=== PATIENT | male | born 1945 | race Caucasian/White ===

== ENCOUNTER 2017-07-19 13:13 | Emergency (ER) | payer MEDICARE, OTHER ==
[~2017-07-19] VITALS: Ht 157.5 cm; Wt 76.7 kg
[~2017-07-19 13:13] MED LIST: NKM; NORCO 5-325 TA1 EACH ORAL
[2017-07-19] MEDS ORDERED: ASPIR 8181 MG ORAL (13:34)
[2017-07-19 13:45] VITALS: BP 171/83
[2017-07-19] MEDS ORDERED: Sodium Chloride 500ML 500 ML IV ONE (14:03)
[2017-07-19 14:51] LABS: BASOPHILS % (AUTO) 2.7 % (0.0-2.0); LYMPHOCYTES % (AUTO) 23.5 % (20.0-45.0); MEAN CORPUSCULAR HEMOGLOBIN 30.2 PG (27.0-31.0); MEAN CORPUSCULAR HGB CONC 31.1 G/DL (32.0-36.0); MEAN CORPUSCULAR VOLUME 97 FL (80-99); MEAN PLATELET VOLUME 7.1 FL (6.5-10.1); MONOCYTES % (AUTO) 8.4 % (1.0-10.0); NEUTROPHILS % (AUTO) 62.4 % (45.0-75.0); PLATELET COUNT 217 K/UL (150-450); WHITE BLOOD COUNT 10.5 K/UL (4.8-10.8)
[2017-07-19 15:00] VITALS: BP 144/83
[2017-07-19 15:15] LABS: ANION GAP 7 mmol/L (5-15); CALCIUM 9.6 MG/DL (8.5-10.1); CARBON DIOXIDE 27 MMOL/L (21-32); CHLORIDE 108 MMOL/L (98-107); CREATININE 0.9 MG/DL (0.55-1.30); POTASSIUM 4.2 MMOL/L (3.5-5.1); SODIUM 142 MMOL/L (136-145)
[2017-07-19 15:21] LABS: ALANINE AMINOTRANSFERASE 22 U/L (12-78); ALBUMIN/GLOBULIN RATIO 1.1 (1.0-2.7); ASPARTATE AMINO TRANSFERASE 23 U/L (15-37); LIPASE 115 U/L (73-393); TOTAL PROTEIN 7.3 G/DL (6.4-8.2)
[2017-07-19 16:30] VITALS: BP 158/79
--- NOTE | 2017-07-19 16:36 | Emergency Room Report ---
History of Present Illness General Chief Complaint: Hypertension Source: Patient Present Illness HPI 72-year-old male presents ED complaining of abdominal pain. Started 2 days ago. 11/14, sharp, right lower quadrant. Nonradiating. Patient was seen by PMD today. Was referred to ED for evaluation. Also stating that his blood pressure is high. BP is 184/83. States he is compliant with his medications. Denies any dizziness. Denies any chest pain or shortness of breath. Denies nausea or vomiting. No other aggravating relieving factors. Denies any other associated symptoms Allergies: Coded Allergies: No Known Allergies (Unverified , 07/17/13) Patient History Past Medical History: HTN Past Surgical History: none Pertinent Family History: none Social History: Denies: smoking, alcohol use, drug use Immunizations: UTD Reviewed Nursing Documentation: PMH: Agreed, PSxH: Agreed Nursing Documentation-PMH Past Medical History: No Stated History Review of Systems All Other Systems: negative except mentioned in HPI Physical Exam Vital Signs Date Time Temp Pulse Resp B/P (MAP) Pulse Ox O2 Delivery O2 Flow Rate FiO2 07/19/17 13:30 98.1 79 18 184/83 96 Room Air 07/19/17 13:45 97 Sp02 EP Interpretation: reviewed, normal General Appearance: no apparent distress, alert, GCS 15, non-toxic Head: normocephalic, atraumatic Eyes: bilateral eye normal inspection, bilateral eye PERRL ENT: hearing grossly normal, normal pharynx, no angioedema, normal voice Neck: full range of motion, supple/symm/no masses Respiratory: chest non-tender, lungs clear, normal breath sounds, speaking full sentences Cardiovascular #1: regular rate, rhythm, no edema Cardiovascular #2: 2+ carotid (R), 2+ carotid (L), 2+ radial (R), 2+ radial (L) , 2+ dorsalis pedis (R), 2+ dorsalis pedis (L) Gastrointestinal: normal bowel sounds, soft, non-distended, no guarding, no rebound, tenderness - RLQ Rectal: deferred Genitourinary: normal inspection, no CVA tenderness Musculoskeletal: back normal, gait/station normal, normal range of motion, non- tender Neurologic: alert, oriented x3, responsive, motor strength/tone normal, sensory intact, speech normal Psychiatric: judgement/insight normal, memory normal, mood/affect normal, no suicidal/homicidal ideation Reflexes: 3+ bicep (R), 3+ bicep (L), 3+ tricep (R), 3+ tricep (L), 3+ knee (R) , 3+ knee (L) Skin: normal color, no rash, warm/dry, well hydrated Lymphatic: no adenopathy Medical Decision Making Diagnostic Impression: Primary Impression: Hypertension Qualified Codes: I10 - Essential (primary) hypertension Additional Impression: Kidney stone ER Course Hospital Course 72-year-old M presents to ED with RLQ pain Differential diagnosis includes-appendicitis, cholecystitis, kidney stone, pyelonephritis Clinical course Patient placed on stretcher. After initial history and physical I ordered labs , IV fluids, pain medications and CT scan Labs - no leukocytosis, electrolytes ok, LFTs normal, UA - hematuria, no UTI CT scan shows 5mm stone in proximal R ureter with hydronephrisis Given no evidence of bacteria in urine, normal kidney function I believe patient be safely discharged to home. Discussed findings with patient and family. They agreed to plan. Recommend followup with urology I feel this is a highly complex case requiring extensive working including EKG/ Rhythm strip, Xray/CT/US, Blood/urine lab work, repeat exams while in ED, and administration of strong opiates/narcotics for pain control, admission to hospital or close patient follow up. Diagnosis - hypertension, kidney stone Stable and discharged to home with Rx Tylenol, Flomax. Followup with PMD. Return to ED if symptoms recur or worsen Labs Test 07/19/17 14:38 White Blood Count 10.5 K/UL (4.8-10.8) Red Blood Count 5.00 M/UL (4.70-6.10) Hemoglobin 15.1 G/DL (14.2-18.0) Hematocrit 48.6 % (42.0-52.0) Mean Corpuscular Volume 97 FL (80-99) Mean Corpuscular Hemoglobin 30.2 PG (27.0-31.0) Mean Corpuscular Hemoglobin Concent 31.1 G/DL (32.0-36.0) Red Cell Distribution Width 13.0 % (11.6-14.8) Platelet Count 217 K/UL (150-450) Mean Platelet Volume 7.1 FL (6.5-10.1) Neutrophils (%) (Auto) 62.4 % (45.0-75.0) Lymphocytes (%) (Auto) 23.5 % (20.0-45.0) Monocytes (%) (Auto) 8.4 % (1.0-10.0) Eosinophils (%) (Auto) 3.0 % (0.0-3.0) Basophils (%) (Auto) 2.7 % (0.0-2.0) Sodium Level 142 MMOL/L (136-145) Potassium Level 4.2 MMOL/L (3.5-5.1) Chloride Level 108 MMOL/L (98-107) Carbon Dioxide Level 27 MMOL/L (21-32) Anion Gap 7 mmol/L (5-15) Blood Urea Nitrogen 17 mg/dL (7-18) Creatinine 0.9 MG/DL (0.55-1.30) Estimat Glomerular Filtration Rate mL/min (>60) Glucose Level 91 MG/DL (74-106) Calcium Level 9.6 MG/DL (8.5-10.1) Total Bilirubin 0.8 MG/DL (0.2-1.0) Aspartate Amino Transf (AST/SGOT) 23 U/L (15-37) Alanine Aminotransferase (ALT/SGPT) 22 U/L (12-78) Alkaline Phosphatase 77 U/L (46-116) Total Protein 7.3 G/DL (6.4-8.2) Albumin 3.8 G/DL (3.4-5.0) Globulin 3.5 g/dL Albumin/Globulin Ratio 1.1 (1.0-2.7) Lipase 115 U/L (73-393) CT/MRI/US Diagnostic Results CT/MRI/US Diagnostic Results : Imaging Test Ordered: CT A/P Impression 5mm stone in proximal R ureter. mild hydroneprhosis Last Vital Signs Date Time Temp Pulse Resp B/P (MAP) Pulse Ox O2 Delivery O2 Flow Rate FiO2 07/19/17 13:45 98.6 73 15 171/83 97 Room Air 07/19/17 13:45 97 Status: improved Disposition: HOME, SELF-CARE Condition: Stable Scripts Tamsulosin Hcl (TAMSULOSIN HCL*) 0.4 Mg Cap.er.24h 0.4 MG ORAL BEDTIME, #10 CAP Prov: [place],BRIAN M.D. 07/19/17 Acetaminophen With Codeine (T#3) (TYLENOL #3 TAB*) Y Tab 1 TAB ORAL Q8H Y for For Pain, #20 TAB Prov: BRIAN ESQUIVEL M.D. 07/19/17 Referrals: NON PHYSICIAN (PCP) BRIAN ESQUIVEL M.D. Jul 19, 2017 16:35
[2017-07-19 17:17] LABS: APPEARANCE,URINE CLEAR; KETONES,URINE NEGATIVE (NEGATIVE); LEUKOCYTE ESTERASE ,URINE 3+ (NEGATIVE); NITRITE,URINE NEGATIVE (NEGATIVE); PH,URINE 7 (4.5-8.0); PROTEIN,URINE NEGATIVE (NEGATIVE); UROBILINOGEN,URINE NORMAL MG/DL (0.0-1.0)
[2017-07-19 17:24] LABS: BACTERIA,URINE FEW /HPF
[2017-07-19] MEDS ORDERED: ACETAMINOPHEN-1 EAC1 ORAL (17:42)
[2017-07-19] MEDS ORDERED: TAMSULOSIN HCL0.4 MG ORAL (17:42)
[2017-07-19 17:56] VITALS: BP 168/91
[2017-07-19 17:57] VITALS: BP 168/91
--- NOTE | 2017-07-20 05:02 | Diagnostic Imaging Report ---
Clinical Indication: Abdominal pain Technique: No oral contrast utilized, per emergency room physician request IV administration nonionic contrast. Venous phase spiral acquisition obtained through the abdomen and pelvis. Multiplanar reconstructions were generated. Total dose length product 842 mGycm. CTDIvol(s) 17 mGy. Dose reduction achieved using automated exposure control Comparison: None Findings: There is a 5 x 6 mm calculus in the proximal right ureter, approximately 2 cm distal to the ureteropelvic junction. There is only mild resultant hydronephrosis, and renal opacification appears normal. There is only minimal perinephric fat stranding which is not significantly different then the contralateral side. No intrarenal calculi demonstrated. The left kidney demonstrates a 7 mm exophytic enhancing mass coming off of the lower pole. No focal right renal abnormality. The bladder is unremarkable. The prostate is mildly enlarged. There is a small fat-containing indirect left inguinal hernia. There is colonic diverticulosis. No evidence of diverticulitis. The appendix is not definitely identified, but there are no findings to suggest acute appendicitis. There is a small sliding-type hiatal hernia. The remainder of the stomach is unremarkable. The duodenum is unremarkable. No small bowel distention. No free or loculated intraperitoneal air or fluid is evident. The gallbladder contents are minimally heterogeneous, small stones not completely excludable. A 0.7 cm hypodense lesion in the left lobe of the liver is indeterminate (series 5, image 22). The bile ducts are unremarkable. The spleen and adrenals are unremarkable. The heart is enlarged. Atelectatic changes and/or scarring are seen at both lung bases. The bones demonstrate degenerative spondylosis changes Impression: Positive for 5 x 6 mm proximal right ureteral calculus. This results in only mild hydronephrosis and delay in renal opacification 7 mm exophytic nodule coming off of the lower pole of the left kidney An indeterminate 7 mm left renal lesion. Follow-up CT or MRI beginning in 3-6 months is recommended, depending on co-morbidities or limited life expectancy. A 0.7 cm hypodense left lobe lesion is indeterminate for neoplasm. Follow-up with MRI or CT in 6 months is recommended, although a shorter interval follow-up may sometimes be appropriate, such as with a cirrhotic patient who is a liver transplant candidate. Colonic diverticulosis. No evidence of diverticulitis Cannot completely exclude small gallstone Cardiomegaly Mild prostatomegaly Incidental findings as noted, including degenerative spondylosis, small sliding-type hiatal hernia The CT scanner at [facility] is accredited by the [employer] and the scans are performed using protocols designed to limit radiation exposure to as low as reasonably achievable to attain images of sufficient resolution adequate for diagnostic evaluation. Recommendations for renal mass management, based on Caroline et al., J Am Ursula Radiol 7:754-73 (2010). Recommendations for incidental liver lesion management based on Barrettland et al., J Am Ursula Radiol 7:754-73 (2010).
== END 2017-07-19 17:55 | disposition home or self-care (01) ==
LOC: EMR 13:45
DX: I10 Essential (primary) hypertension (principal); N13.2 Hydronephrosis with renal and ureteral calculous obstruction; K57.30 Diverticulosis of large intestine without perforation or abscess without bleeding
CPT/HCPCS: 36415; 74177; 80053; 81003; 83690; 85025; 96360; 99284; Q9967

== ENCOUNTER 2017-08-23 05:30 | Day surgery (SDC) | payer MEDICARE ==
[2017-08-23] VITALS (9 sets, daily range): BP systolic 138–158; BP diastolic 72–85
[~2017-08-23] VITALS: Ht 160 cm; Wt 77.1 kg
[~2017-08-23 05:30] MED LIST changes: +ACETAMINOPHEN-1 EAC1 ORAL; +ASPIR 8181 MG ORAL; +TAMSULOSIN HCL0.4 MG ORAL
[2017-08-23] MEDS ORDERED: LR 1000ml ONE (05:31)
[2017-08-23] MEDS ORDERED: Morphine Sulfate 10mg/ml Inj ONE (05:31)
[2017-08-23] MEDS ORDERED: NS Irrig 2000ml IRRIG ONE ×2 (05:31→08:55)
[2017-08-23] MEDS ORDERED: Ketorolac 30mg Inj ONE (05:31)
[2017-08-23] MEDS ORDERED: fentaNYL 100 mcg/2 mL IV ONE (05:31)
[2017-08-23] MEDS ORDERED: Dexamethasone 4mg/ml vial ONE (05:31)
[2017-08-23] MEDS ORDERED: EDARBYCLOR 40-1 EAC1 ORAL (06:04)
[2017-08-23] MEDS ORDERED: ceFAZolin sod 1 GM in NS 55 ML IVPB ONE (07:00)
[2017-08-23] MEDS ORDERED: Iothalamate Meglumine 60% 30ML INJ ONE (07:08)
--- NOTE | 2017-08-23 07:53 | Pre-Procedure Note/Attestation ---
Pre-Procedure Note/Attestation Complete Prior to Procedure Planned Procedure: right Procedure Narrative: ESWL RIRS right, stent placement Indications for Procedure Pre-Operative Diagnosis: ureteral stone Attestation I attest that I discussed the nature of the procedure; its benefits; risks and complications; and alternatives (and the risks and benefits of such alternatives ), prior to the procedure, with the patient (or the patient's legal packaging sales representative). I attest that, if there was a reasonable possibility of needing a blood transfusion, the patient (or the patient's legal packaging sales representative) was given the [facility] standardized written summary, pursuant to the Jovan Darin Blood Safety Act ([place] Health and Safety Code # 1645, as amended). I attest that I re-evaluated the patient just prior to the surgery and that there has been no change in the patient's H&P, except as documented below: Ubaldo Griffiths MD Aug 23, 2017 07:52
[2017-08-23] MEDS ORDERED: LR 1000ml 1,000 ML IVLG SCH (08:26)
--- NOTE | 2017-08-23 08:29 | Anethesia Preoperative Eval ---
Anesthesia Pre-op PMH/ROS General Date of Evaluation: Aug 23, 2017 Time of Evaluation: 07:30 Anesthesiologist: Mariann ASA Score: ASA 2 Mallampati Score Class I : Soft palate, uvula, fauces, pillars visible Class II: Soft palate, uvula, fauces visible Class III: Soft palate, base of uvula visible Class IV: Only hard plate visible Mallampati Classification: Class I Surgeon: Darnell Diagnosis: Kidney Stone Surgical Procedure: ESWL Anesthesia History: none Family History: no anesthesia problems Allergies: Coded Allergies: No Known Allergies (Unverified , 07/17/13) Anesthesia Pre-op Phys. Exam Physician Exam Last Vital Signs Date Time Temp Pulse Resp B/P (MAP) Pulse Ox O2 Delivery O2 Flow Rate FiO2 08/23/17 06:06 98.5 86 20 143/81 96 Room Air Constitutional: NAD Neurologic: CN 2-12 intact Cardiovascular: RRR Respiratory: CTA Gastrointestinal: S/NT/ND Airway Exam Mallampati Score: Class II MO: full ROM: full Teeth: intact Anesthesia Pre-op A/P Risk Assessment & Plan Plan: GA Status Change Before Surgery: No Pre-Antibiotics Drug: ANCEF Given Within 1 Hr of Incision: Yes Time Given: 08:00 Magen Waite M.D. Aug 23, 2017 08:29
[2017-08-23] MEDS ORDERED: Morphine Sulfate 2mg/ml Inj IVP PRN (08:30)
[2017-08-23] MEDS ORDERED: Midazolam 2mg/2ml Inj IVP PRN (08:30)
[2017-08-23] MEDS ORDERED: fentaNYL 100 mcg/2 mL IV PRN (08:30)
[2017-08-23] MEDS ORDERED: Ketorolac 30mg Inj IV PRN (08:30)
[2017-08-23] MEDS ORDERED: DiphenhydrAMINE 50mg/ml Inj IVP PRN (08:30)
--- NOTE | 2017-08-23 08:31 | Immediate Post-Op Evaluation ---
Immediate Post-Op Evalulation Immediate Post-Op Evalulation Procedure: ESWL Date of Evaluation: Aug 23, 2017 Time of Evaluation: 10:30 IV Fluids: 500 Blood Products: 0 Estimated Blood Loss: 0 Urinary Output: 0 Blood Pressure Systolic: 129 Blood Pressure Diastolic: 75 Pulse Rate: 68 Respiratory Rate: 16 O2 Sat by Pulse Oximetry: 99 Temperature (Fahrenheit): 98 Pain Score (1-10): 0 Nausea: No Vomiting: No Patient Status: awake, reacts, patent Hydration Status: adequate Drug: Ancef Given Within 1 Hr of Incision: Yes Time Given: 08:00 Magen Waite M.D. Aug 23, 2017 08:31
--- NOTE | 2017-08-23 09:20 | Brief Operative Note ---
Immediate Post Operative Note Operative Note Pre-op Diagnosis: ureteral stone Procedure: eswl, rirs laser right with stent placement Post-op Diagnosis: same Post-op Diagnosis: same as pre-op Surgeon: Howard Griffiths Anesthesia: general Specimen: yes Complications: none Condition: stable Fluids: 500 Estimated Blood Loss: minimal Implant(s) used?: No Ubaldo Griffiths MD Aug 23, 2017 09:20
[2017-08-23] MEDS ORDERED: HYDROmorphone 1mg/ml Carpuject SUBQ PRN (11:01)
[2017-08-23] MEDS ORDERED: Tylenol #3 tab (300mg/30mg) ORAL PRN (11:01)
[2017-08-23] MEDS ORDERED: Norco 5mg/325mg tab ORAL PRN (11:01)
[2017-08-23] MEDS ORDERED: D5 1/2NS 1,000 ML IV SCH (11:01)
--- NOTE | 2017-08-23 15:45 | Operative Note - Dictated ---
DATE OF OPERATION: 08/23/2017 PREOPERATIVE DIAGNOSIS: Right upper ureteral stone. OPERATION: Extracorporeal shock wave lithotripsy with retrograde intrarenal surgery, laser lithotripsy of the stone, removal of the fragments, placement of double-J stent and retrograde pyelogram. POSTOPERATIVE DIAGNOSIS: Right upper ureteral stone. SLAB INSTALLER: Ubaldo Griffiths M.D. ANESTHESIA: General. FINDINGS: Large mid upper ureteral stone on the right side. INDICATION FOR SURGERY: The patient had renal colic. Pain got better, but he had not passed the stone. Repeat CT urogram showed imbedded stone in the mid to upper right ureter. Treatment options were explained to him in great length including all potential complications. He signed a consent. He was brought to the operating room, placed in lithotomy position, and prepped and draped in a standard fashion. Under general anesthesia, cystoscope was introduced into the bladder. Urethra and prostate was normal. Right ureter was found and cannulated. Guidewire was placed. Retrograde pyelogram was performed showing dilation of the mid upper ureter above the stone. Using a semi-rigid ureteroscope, bladder was placed into the mid ureter and a stone was found and broken with 300 micron fiber into small pieces. One of the fragments, largest one was grasped with a Nitinol basket and removed for pathologic examination. Further flexible ureteroscopy showed no evidence of residual fragments in the kidney. Double-J stent 24/7 was placed and left in the collecting system of the kidney and the bladder. Serrano catheter was placed. Procedure was terminated. The patient tolerated procedure well without any complication. Ubaldo Griffiths M.D. DR: PRUDENCE JOB#: [id number] CC:
== END 2017-08-23 11:00 | disposition home or self-care (01) ==
LOC: SUR 05:30
DX: N20.1 Calculus of ureter (principal); E78.5 Hyperlipidemia, unspecified; I10 Essential (primary) hypertension; R26.9 Unspecified abnormalities of gait and mobility; Z79.82 Long term (current) use of aspirin; F17.210 Nicotine dependence, cigarettes, uncomplicated; Z80.8 Family history of malignant neoplasm of other organs or systems
CPT/HCPCS: 50590; 52005; 52332; J0690; J1100; J1885; J2270; J2405; J3010; J7120; Q9961; 94003; 94150